=== PATIENT | male | born 1940 | race Hispanic/Latino ===

== ENCOUNTER 2017-10-23 15:05 | Emergency (ER) | payer OTHER ==
[2017-10-23] MEDS ORDERED: LIDOCAINE 1% W/EPI 1:100,000 MDV 50 ML VIAL ONE (15:41)
[2017-10-23] MEDS ORDERED: BUPIVACAINE 0.5% PF 10 ML VIAL ONE (15:45)
[2017-10-23] MEDS ORDERED: NA CHLORIDE 0.9% 1,000 ML ONE ×2 (16:11→16:14)
--- NOTE | 2017-10-23 17:35 | EDPHYS ---
Physician Documentation [facility] Name: Bruce Cox Age: 77 yrs Sex: Male : 1940 Arrival Date: 10/23/2017 Time: 15:06 Bed 16 Private MD: out of town, doctor ED Physician Salvador Alegria HPI: 10/23 15:55 This 77 yrs old Male presents to ER via Wheelchair with complaints of Bleeding cp from surgical site. 15:55 The patient has a dialysis catheter in the right subclavian area. cp 15:55 Type of problem: bleeding at site. Onset: The symptoms/episode began/occurred today. cp Patient reports having dialysis catheter replaced today at surgical center in [facility]. Call office to report bleeding from surgical site and was told to go to ED for evaluation. Historical: - Allergies: 15:11 No Known Allergies; sv - Home Meds: 15:11 Simvastatin Oral [Active]; Levemir subcutaneous subcutaneous [Active]; sv Hydrochlorothiazide Oral [Active]; D3 [Active]; levdcetirizine [Active]; Famotidine Oral [Active]; gabapentin oral oral [Active]; carvedilol oral oral [Active]; - PMHx: 15:11 ESRD; sv - PSHx: 15:11 triple bypass; sv - Immunization history:: Adult Immunizations up to date. - Social history:: Smoking status: Patient/guardian denies using tobacco. - Ebola Screening: : No symptoms or risks identified at this time. ROS: 16:00 Constitutional: Negative for body aches, chills, fever, poor PO intake. cp 16:00 Cardiovascular: Negative for chest pain, palpitations. 16:00 Respiratory: Negative for cough, shortness of breath, wheezing. 16:00 Neuro: Negative for altered mental status, dizziness, headache, syncope, near syncope, weakness. 16:00 All other systems are negative. Exam: 16:05 Constitutional: The patient appears in no acute distress, alert, awake, cp non-diaphoretic, non-toxic, well developed, well nourished. 16:05 Head/Face: Normocephalic, atraumatic. cp 16:05 Eyes: Periorbital structures: appear normal, Conjunctiva: normal, Lids and lashes: appear normal, bilaterally. 16:05 ENT: External ear(s): are unremarkable, Nose: is normal, Mouth: is normal, Posterior pharynx: is normal, airway is patent. 16:05 Neck: External neck: is normal, ROM/movement: is normal, is supple, without pain, no range of motions limitations, no nuchal rigidity. 16:05 Chest/axilla: Inspection: double lumen subclavian catheter noted right upper chest wall with small hematoma noted at incision site, dressing saturated with blood but no active bleeding noted when dressing removed, Palpation: tenderness, that is mild, of the anterior aspect of right upper chest. 16:05 Cardiovascular: Rate: normal, Rhythm: regular. 16:05 Respiratory: the patient does not display signs of respiratory distress, Respirations: normal, no use of accessory muscles, no retractions, no splinting, no tachypnea, labored breathing, is not present, Breath sounds: are clear throughout, no decreased breath sounds, no stridor, no wheezing. 16:05 Abdomen/GI: Inspection: abdomen appears normal, Palpation: abdomen is soft and non-tender, in all quadrants. 16:05 Neuro: Orientation: to person, place \T\ time. Mentation: is normal, Cerebellar function: is grossly normal, Motor: moves all fours, strength is normal, Sensation: no obvious gross deficits. Vital Signs: 15:11 BP 128 / 51; Pulse 72; Resp 16; Temp 98.1; Pulse Ox 97% ; Weight 81.65 kg; Height 5 ft. sv 3 in. (160.02 cm); Pain 0/10; 17:02 BP 115 / 47; Pulse 65; Resp 18; Pulse Ox 94% on R/A; aj1 18:02 BP 131 / 51; Pulse 70; Resp 18; Pulse Ox 99% ; aj1 15:11 Body Mass Index 31.89 (81.65 kg, 160.02 cm) sv MDM: 15:27 Patient medically screened. cp 17:33 Data reviewed: vital signs, nurses notes, and as a result, I will discharge patient. cp 17:33 Counseling: I had a detailed discussion with the patient and/or guardian regarding: the cp historical points, exam findings, and any diagnostic results supporting the discharge/admit diagnosis, to return to the emergency department if symptoms worsen or persist or if there are any questions or concerns that arise at home. Response to treatment: the patient's symptoms have markedly improved after treatment, VSS. Dressing changed and surgi seal applied to surgical site. Will discharge to home for continued monitoring. 10/23 15:50 Order name: Suture Tray at Bedside; Complete Time: 15:50 aj1 10/23 15:50 Order name: Sterile Gloves; Complete Time: 15:50 aj1 Administered Medications: 18:03 Not Given (Physician Discretion): Marcaine (0.5 %) 1 application 10 ml Infiltration onceaj1 18:03 Not Given (Physician Discretion): Lidocaine (1 %) 1 application 20 ml Infiltration aj1 once; with epi Disposition: 18:30 Chart complete. cp 18:37 Co-signature as Attending Physician, Salvador Alegria MD. rn Disposition: 10/23/17 17:35 Discharged to Home. Impression: Encounter for change or removal of surgical wound dressing. - Condition is Stable. - Medication Reconciliation Form, Thank You Letter, Antibiotic Education, Prescription Opioid Use form. - Follow up: Private Physician; When: 48 Hours; Reason: Wound Recheck. - Problem is new. - Symptoms have improved. Signatures: Leonela Dodson RN RN aj1 Rosaura Banuelos RN RN Salvador Dunn MD MD rn Page, Corey, PA PA cp Corrections: (The following items were deleted from the chart) 18:09 17:35 10/23/2017 17:35 Discharged to Home. Impression: Encounter for change or removal aj1 of surgical wound dressing. Condition is Stable. Forms are Medication Reconciliation Form, Thank You Letter, Antibiotic Education, Prescription Opioid Use. Follow up: Private Physician; When: 48 Hours; Reason: Wound Recheck. Problem is new. Symptoms have improved. cp
--- NOTE | 2017-10-23 17:35 | ER ---
Nurse's Notes [facility] Name: Bruce Cox Age: 77 yrs Sex: Male : 1940 Arrival Date: 10/23/2017 Time: 15:06 Bed 16 Private MD: out of town, doctor Diagnosis: Encounter for change or removal of surgical wound dressing Presentation: 10/23 15:09 Presenting complaint: Patient states: pt had HD tessio placed this morning and came sv home and started noticing that he was bleeding from the site on the right chest wall. Transition of care: patient was not received from another setting of care. Onset of symptoms was October 23, 2017. Care prior to arrival: None. 15:09 Method Of Arrival: Wheelchair sv 15:09 Acuity: FARHAD 3 sv Historical: - Allergies: 15:11 No Known Allergies; sv - Home Meds: 15:11 Simvastatin Oral [Active]; Levemir subcutaneous subcutaneous [Active]; sv Hydrochlorothiazide Oral [Active]; D3 [Active]; levdcetirizine [Active]; Famotidine Oral [Active]; gabapentin oral oral [Active]; carvedilol oral oral [Active]; - PMHx: 15:11 ESRD; sv - PSHx: 15:11 triple bypass; sv - Immunization history:: Adult Immunizations up to date. - Social history:: Smoking status: Patient/guardian denies using tobacco. - Ebola Screening: : No symptoms or risks identified at this time. Screenin:46 Abuse screen: Denies threats or abuse. Denies injuries from another. Nutritional aj1 screening: No deficits noted. Tuberculosis screening: No symptoms or risk factors identified. 18:03 Fall Risk None identified. aj1 Assessment: 15:46 General: Appears in no apparent distress. comfortable, Behavior is calm, cooperative, aj1 appropriate for age. Pain: Denies pain. Neuro: Level of Consciousness is awake, alert, obeys commands, Oriented to person, place, time, situation. Cardiovascular: Patient's skin is warm and dry. Respiratory: Airway is patent Respiratory effort is even, unlabored, Respiratory pattern is regular, symmetrical. GI: No signs and/or symptoms were reported involving the gastrointestinal system. : No signs and/or symptoms were reported regarding the genitourinary system. EENT: No signs and/or symptoms were reported regarding the EENT system. Derm: Skin is pink, warm \T\ dry. normal, Bleeding noted to dialysis catheter. Musculoskeletal: No signs and/or symptoms reported regarding the musculoskeletal system. Circulation, motion, and sensation intact. 17:02 Reassessment: Patient appears in no apparent distress at this time. No changes from aj1 previously documented assessment. Patient and/or family updated on plan of care and expected duration. Pain level reassessed. Patient is alert, oriented x 3, equal unlabored respirations, skin warm/dry/pink. 18:02 Reassessment: Patient appears in no apparent distress at this time. No changes from aj1 previously documented assessment. Patient and/or family updated on plan of care and expected duration. Pain level reassessed. Patient is alert, oriented x 3, equal unlabored respirations, skin warm/dry/pink. Vital Signs: 15:11 BP 128 / 51; Pulse 72; Resp 16; Temp 98.1; Pulse Ox 97% ; Weight 81.65 kg; Height 5 ft. sv 3 in. (160.02 cm); Pain 0/10; 17:02 BP 115 / 47; Pulse 65; Resp 18; Pulse Ox 94% on R/A; aj1 18:02 BP 131 / 51; Pulse 70; Resp 18; Pulse Ox 99% ; aj1 15:11 Body Mass Index 31.89 (81.65 kg, 160.02 cm) sv ED Course: 15:06 Patient arrived in ED. mr 15:06 out of town, doctor is Private Physician. mr 15:10 Triage completed. sv 15:13 Arm band placed on right wrist. sv 15:27 Tyler Ocampo PA is PHCP. cp 15:27 Salvador Alegria MD is Attending Physician. cp 15:44 Leonela Dodson, MARIO is Primary Nurse. aj1 15:46 Patient has correct armband on for positive identification. Bed in low position. Call aj1 light in reach. Side rails up X 1. 15:46 No provider procedures requiring assistance completed. aj1 18:02 Patient did not have IV access during this emergency room visit. aj1 Administered Medications: 18:03 Not Given (Physician Discretion): Marcaine (0.5 %) 1 application 10 ml Infiltration onceaj1 18:03 Not Given (Physician Discretion): Lidocaine (1 %) 1 application 20 ml Infiltration aj1 once; with epi Outcome: 17:35 Discharge ordered by . cp 18:02 Discharged to home ambulatory, with family. aj1 18:02 Condition: good 18:02 Discharge instructions given to patient, family, Instructed on discharge instructions, follow up and referral plans. Demonstrated understanding of instructions, follow-up care. 18:09 Patient left the ED. aj1 Signatures: Leonela Dodson RN RN aj1 Rosaura Banuelos RN RN sv Luiza Pond mr Damaris, Tyler, PA PA cp Corrections: (The following items were deleted from the chart) 15:14 15:11 Pulse 72bpm; Resp 16bpm; Pulse Ox 97%; Temp 98.1F; 81.65 kg; Height 5 ft. 3 in.; sv BMI: 31.8; Pain 0/10; sv
== END 2017-10-23 18:09 | disposition home or self-care (01) ==
LOC: ER 15:05
DX: T82.838A Hemorrhage due to vascular prosthetic devices, implants and grafts, initial encounter (principal); N18.6 End stage renal disease; Y84.1 Kidney dialysis as the cause of abnormal reaction of the patient, or of later complication, without mention of misadventure at the time of the procedure; Y92.9 Unspecified place or not applicable
CPT/HCPCS: 99281; J7030 ×2